=== PATIENT | male | born 1940 | race Caucasian/White ===

== ENCOUNTER 2017-07-23 08:06 | Emergency (ER) | payer MEDICARE, OTHER ==
[~2017-07-23] VITALS: Wt 72.0 kg
[2017-07-23] MEDS ORDERED: SOD CHLORIDE 0.9% 500 ML IV ONE (08:30)
[2017-07-23] MEDS ORDERED: DEXTROSE 50% 50 ML SYRINGE IV ONE (09:00)
[2017-07-23 09:06] LABS: BASOPHIL # 0.1 10^3/ul (0.0-0.1); BASOPHILS % 0.7 % (0.0-2.0); EOSINOPHILS # 0.1 10^3/ul (0.0-0.5); HEMATOCRIT 43.4 % (42.0-52.0); HEMOGLOBIN 14.2 g/dl (14.0-18.0); LYMPHOCYTES # 1.3 10^3/ul (0.8-2.9); LYMPHOCYTES % 11.9 % (15.0-51.0); MEAN CORPUSCULAR HEMOGLOBIN 30.4 pg (29.0-33.0); MEAN CORPUSCULAR HGB CONC 32.7 g/dl (32.0-37.0); MEAN CORPUSCULAR VOLUME 92.9 fl (82.0-101.0); MEAN PLATELET VOLUME 10.5 fl (7.4-10.4); MONOCYTE # 0.8 10^3/ul (0.3-0.9); MONOCYTES % 7.4 % (0.0-11.0); NEUTROPHIL # 8.8 10^3/ul (1.6-7.5); NEUTROPHILS % 78.2 % (39.0-77.0); PLATELET COUNT 279 10^3/UL (140-415); RED BLOOD COUNT 4.67 10^6/ul (4.70-6.10); RED CELL DISTRIBUTION WIDTH 13.7 % (11.5-14.5); WHITE BLOOD COUNT 11.3 10^3/ul (4.8-10.8)
[2017-07-23 09:26] LABS: ANION GAP 14 (8-16); BLOOD UREA NITROGEN 30 mg/dl (7-20); CALCIUM 9.3 mg/dl (8.4-10.2); CARBON DIOXIDE 22 mmol/L (21-31); CHLORIDE 110 mmol/L (97-110); CREATININE 1.71 mg/dl (0.61-1.24); POTASSIUM 3.5 mmol/L (3.5-5.1); SODIUM 142 mmol/L (135-144)
[2017-07-23 09:40] LABS: GLUCOSE 43 mg/dl (70-220)
[2017-07-23 09:44] LABS: TROPONIN-I < 0.012 ng/ml (0.00-0.12)
[2017-07-23] MEDS ORDERED: DEXTROSE 10% 250 ML IV SCH (10:00)
[2017-07-23] MEDS ORDERED: HYDROmorphONE 1 MG/ML SYG IV STA (10:06)
[2017-07-23] MEDS ORDERED: ONDANSETRON 4 MG INJ IV STA (10:06)
[2017-07-23 11:20] VITALS: BP 152/82; PULSE 85; RESP 16
--- NOTE | 2017-07-27 09:13 | ERD ---
ER Documentation Chief Complaint Date/Time DATE: 07/27/17 TIME: 08:54 Chief Complaint Mech fall while walking in [employer] parking lot, head injury, no ko HPI This 76 year old male was brought in confused after he fell in the entrance to the [employer] building next door. Initially confused, after some juice he is able to answer questions. He took his insulin and ate this morning as usual. He remembers driving and parking for his appointment with Dr. Paulino to talk about some R kneed pain he has been having. The last thing he remembers is walking into the building, then being here. He denies head injury and has no pain except for the knee he wanted to discuss at his appointment. His knee pain is no worse that usual. No chest pain, confusion , lightheadedness or headache. ROS All systems reviewed and are negative except as per history of present illness. PMhx/Soc History of Surgery: No Anesthesia Reaction: No Hx Neurological Disorder: No Hx Respiratory Disorders: No Hx Cardiac Disorders: Yes (HTN, HLD) Hx Psychiatric Problems: No Hx Miscellaneous Medical Probl: Yes (IDDM II) Hx Alcohol Use: Yes (Daily, 2-3 drinks) Hx Substance Use: Yes (Marijuana daily) Hx Tobacco Use: No Smoking Status: Never smoker Physical Exam Vitals Vital Signs Date Time Temp Pulse Resp B/P Pulse Ox O2 Delivery O2 Flow Rate FiO2 07/23/17 11:20 85 16 152/82 98 Room Air 07/23/17 08:26 0 07/23/17 08:07 98.7 93 17 121/71 94 Physical Exam Const: [] No distress Head: Atraumatic Eyes: Normal Conjunctiva, EOMI, PERRLA ENT: Normal External Ears, Nose and Mouth. Neck: Full range of motion..~ No meningismus. Resp: Clear to auscultation bilaterally Cardio: Regular rate and rhythm, no murmurs Abd: Soft, non tender, non distended. Normal bowel sounds Skin: No petechiae or rashes Back: No midline or flank tenderness Ext: No cyanosis, or edema, distal pulses intact all 4 Neur: Awake and alert and oriented x3, CN 2-12 intact, no focal deficits Psych: Normal Mood and Affect Result Diagram: 07/23/1785407/23/17854 Results 24 hrs Laboratory Tests Test 07/23/17 08:39 07/23/17 08:55 07/23/17 09:38 07/23/17 11:00 Bedside Glucose 48mg/dL 73mg/dL 279mg/dL White Blood Count 11.310^3/ul Red Blood Count 4.6710^6/ul Hemoglobin 14.2g/dl Hematocrit 43.4% Mean Corpuscular Volume 92.9fl Mean Corpuscular Hemoglobin 30.4pg Mean Corpuscular Hemoglobin Concent 32.7g/dl Red Cell Distribution Width 13.7% Platelet Count 07161^3/UL Mean Platelet Volume 10.5fl Neutrophils % 78.2% Lymphocytes % 11.9% Monocytes % 7.4% Eosinophils % 1.0% Basophils % 0.7% Nucleated Red Blood Cells % 0.0/100WBC Neutrophils # 8.810^3/ul Lymphocytes # 1.310^3/ul Monocytes # 0.810^3/ul Eosinophils # 0.110^3/ul Basophils # 0.110^3/ul Nucleated Red Blood Cells # 0.010^3/ul Sodium Level 142mmol/L Potassium Level 3.5mmol/L Chloride Level 110mmol/L Carbon Dioxide Level 22mmol/L Anion Gap 14 Blood Urea Nitrogen 30mg/dl Creatinine 1.71mg/dl Glucose Level 43mg/dl Calcium Level 9.3mg/dl Troponin I < 0.012ng/ml Current Medications Medications (Trade) Dose Ordered Sig/Tiki Route PRN Reason Start Time Stop Time Status Last Admin Dose Admin Sodium Chloride (NS) 500 ml @ 500 mls/hr Q1H ONCE IV 07/23/17 08:30 07/23/17 09:29 DC 07/23/17 08:47 Dextrose 50 ml 50 ml ONCE ONCE IV 07/23/17 09:00 07/23/17 10:02 DC Dextrose (D10w) 250 ml @ 125 mls/hr Q2H IV 07/23/17 10:00 07/23/17 12:12 DC 07/23/17 10:06 Hydromorphone HCl (Dilaudid) 1 mg ONCE STAT IV 07/23/17 10:06 07/23/17 10:08 DC Ondansetron HCl (Zofran Inj) 4 mg ONCE STAT IV 07/23/17 10:06 07/23/17 10:08 DC Procedures/MDM 76 year old male with hypoglycemia from insulin resulting in syncope and fall. Initial ER accucheck revealed the low sugar. He was conscious enough, although confused, to believe that drinking juice was a good idea. He was also given a bolus of D10. Immediately after juice and gram crackers he was A and O x 4. He had no neuro deficits, and was speaking intelligently. He refused CT's and imaging. After the D10 infusion finished his sugar was over 200. He was given normal saline for renal insufficiency. Also declined UA. No signs of cardiac ischemia. Declined admission. At his request I called Dr. Paulino's office who agreed to rescheduled his appointment for 1300. That gave time for further monitoring. Sugar did not continue to drop and he ate a whole meal. Discharged with PCP follow up tomorrow and strict return precautions. EKG interp: Sinus rhythm with PAC's, LAD, LVH with wide QRS, no ST or T wave changes concerning for acute ischemia. expeller operator interpretation: NSR with occasional PAC and no other arrhythmias. Departure Diagnosis: Primary Impression: Hypoglycemia due to insulin Additional Impressions: Renal insufficiency LVH (left ventricular hypertrophy) Condition: Stable Patient Instructions: Hypocalcemia (Adult) Additional Instructions: Call your primary care doctor TOMORROW for an appointment during the next 2-3 days.See the doctor sooner or return here if your condition worsens before your appointment time. DIEUDONNE MCELROY DO Jul 27, 2017 09:04
== END 2017-07-23 11:50 | disposition home or self-care (01) ==
LOC: E/R 08:06
DX: E11.649 Type 2 diabetes mellitus with hypoglycemia without coma (principal); N28.9 Disorder of kidney and ureter, unspecified; I51.7 Cardiomegaly; I10 Essential (primary) hypertension
CPT/HCPCS: 36415; 80048; 82962; 84484; 85025; 93005; 96374; 99285; J7040